=== PATIENT | female | born 1995 | race Caucasian/White ===

== ENCOUNTER 2024-11-12 21:18 | Emergency (ER) | payer MEDICAID ==
[~2024-11-12] VITALS: Ht 149.9 cm; Wt 108.0 kg
[2024-11-12 21:42] LABS: BASOPHILS 0.5 % (0.1-1.2); EOSINOPHILS 0.9 % (0.7-5.8); LYMPHOCYTES 42.1 % (19.3-51.7); MCH 28.5 PG (25.6-32.2); MCHC 33.4 g/dL (32.2-35.5); MCV 85.2 fL (79.4-94.8); MONOCYTES 7.1 % (4.7-12.5); NEUTROPHILS 48.4 % (34.0-71.1); RBC 4.39 M/uL (3.93-5.22)
[2024-11-12] MEDS ORDERED: SODIUM CHLORIDE 0.9% 500 ML IV PRN (21:45)
[2024-11-12 22:03] LABS: BLOOD/HGB, URINE MODERATE (Negative); KETONE, URINE NEGATIVE (Negative); LEUK ESTERASE, URINE NEGATIVE (negative); NITRITE, URINE NEGATIVE (negative)
[2024-11-12 22:04] LABS: ABO A; RH POSITIVE
[2024-11-12 22:05] LABS: ALT (SGPT) 27.0 U/L (14-59); AST (SGOT) 17.0 U/L (15-37); GLOMERULAR FILTRATION RATE,EST 124.0 mL/min (>60); PROTEIN, TOTAL 7.3 g/dL (6.4-8.2); UREA NITROGEN 7.0 mg/dL (7-18)
[2024-11-12 22:13] LABS: BACTERIA, URINE 1+ /hpf (negative); CASTS, URINE NONE SEEN \\lpf; CRYSTALS, URINE NONE SEEN (0-1+); EPITHELIAL CELLS, URINE SQUAMOUS 2+ /lpf (0-1+); REFLEX CULTURE, URINE No (No)
[2024-11-12] MEDS ORDERED: MACROBID 100 M100 MG PO (23:06)
[2024-11-12] MEDS ORDERED: NITROFURANTOIN MONOHYD MACROCR 100 MG HOME.PACK PO ONE (23:15)
[2024-11-12 23:37] VITALS: BP 116/66
== END 2024-11-12 23:38 | disposition home or self-care (01) ==
LOC: ED 21:18
PROVIDERS: Family Medicine
DX: O20.0 Threatened abortion (principal); Z3A.01 Less than 8 weeks gestation of pregnancy; Z88.0 Allergy status to penicillin; Z91.040 Latex allergy status
CPT/HCPCS: 36415; 76801; 76817; 80053; 81001; 84702; 85025; 86900; 86901; 99284-25